=== PATIENT | female | born 1950 | race Caucasian/White ===

== ENCOUNTER 2019-05-20 08:00 | Observation (INO) | payer OTHER ==
[~2019-05-20] VITALS: Ht 157.5 cm; Wt 76.8 kg
[2019-05-20] MEDS ORDERED: ASPIRIN ADULT L81 M5 PO (08:55)
[2019-05-20] MEDS ORDERED: GLUCOTROL10 MG PO (09:02)
[2019-05-20] MEDS ORDERED: METFORMIN500 M1 PO (09:03)
[2019-05-20] MEDS ORDERED: LOSARTAN POTASS50 M1 PO (09:03)
[2019-05-20] MEDS ORDERED: METOPROLOL TART50 MG PO (09:03)
[2019-05-20] MEDS ORDERED: VITAMIN D22000 I1 PO (09:04)
[2019-05-20] MEDS ORDERED: ATORVASTATIN CA40 M1 PO (09:06)
[2019-05-20 09:26] VITALS: BP 154/73
--- NOTE | 2019-05-20 16:11 | NUR ---
RECEIVED PT FROM PACU, S/P RIGHT TOTAL KNEE REPLACEMENT. AAOX4. DENIES HEADACHE/DIZZINESS. SPEECH IS CLEAR. NO SOB NOTED, LUNG SOUNDS CTA. O2 SAT=98%, RA. DENIES CHEST PAIN/PRESSURE, GI=564. DENIES NUMBNESS/TINGLING SENSATION. DENIES ABDOMINAL PAIN, C/O NAUSEA. ABDOMEN IS SOFT AND ROUND. C/O 6/10 RIGHT KNEE PLACEMENT, ABLE TO MOVE TOES. IV SITE ON THE LEFT HAND GAUGE 20 IS PATENT AND INTACT. SIDE RAILS UPX2. CALL LIGHT ON REACH. DAUGHTER AND AT BEDSIDE. ENDORSED TO PRIMARY NURSE MALI FOR CONTINUITY OF CARE
--- NOTE | 2019-05-20 16:20 | NUR ---
RESUMED CARE OF THIS PT FROM ROSENDO. PT IN NO ACUTE DISTRESS. AWAKE AND ALERT. C/O NAUSEA, ICE CHIPS GIVEN WITH FAIR RELIEF. NO NAUSEA AT THIS TIME. FAMILY AT BEDSIDE. IVF STARTED AND INFUSING WELL, SITE CLEAR. NO C/O PAIN AT THIS TIME. DRESSING TO RT KNE WITH JAME WRAP INPLACE AND INTACT. POLAR ICE IN USE.WILL CONTINUE WITH PLAN OF CARE.
[2019-05-20 16:31] VITALS: BP 147/59
[2019-05-20 16:35] VITALS: Ht 157.5 cm; Wt 76.8 kg
--- NOTE | 2019-05-20 16:54 | NUR ---
PHYSICAL THERAPY NOTE PATIENT AND FAMILY REFUSED EVAL AND TREATMENT TODAY SECONDARY INCREASE MS WEAKNESS, NAUSEA, VOMITTING. PATIENT AND FAMILY EDUCATED WITH BENEFITS OF TREATMENT AND EVAL BUT UNABLE TO ENCOURAGE. FAMILY REPORTS THAT THEY SPOKE TO MD AND REHAB ALREADY AND AGREED TO POSTPONE EVAL TILL TOMORROW. FAMILY AND PATIENT HAVE INCREASE ANXIETY OVER NAUSEA. CONTINUED TO REFUSE AFTER MEDICATION. WILL SEE IN AM TOMORROW. NURSING CONFIRMED AND AWARE.
--- NOTE | 2019-05-20 18:13 | NUR ---
PT C/O NAUSEA, NO VOMITING NOTED. MEDICATED WITH ZOFRAN IVP
--- NOTE | 2019-05-20 18:53 | NUR ---
REMAINS IN NO DISTRESS, AWAKE, ALERT AND ORIENTED. NO CHANGES IN VS. NO C/O PAIN AT THIS TIME, NO NAUSEA. FAMILY AT BEDSIDE. CALL LIGHT WITHIN REACH. WILL CONTINUE WITH PLAN OF CARE.
--- NOTE | 2019-05-20 19:38 | NUR ---
RECEIVED PT FROM PREVIOUS SHIFT. POLAR ICE TO R KNEE. PT DENIES PAIN. DENIES SOB ON RA. IV PATENT AND INFUSING NS AT 80ML/HR WITH NO S/S OF INFILTRATION. DRESSING TO R KNEE, CDI. CALL LIGHT WITHIN REACH, BED IN LOW POSITION. WILL CONTINUE TO MONITOR.
[2019-05-20 20:14] VITALS: BP 128/61
--- NOTE | 2019-05-20 23:55 | NUR ---
PT C/O 5/10 PAIN TO R KNEE. NORCO PROVIDED PRN PER EMAR
--- NOTE | 2019-05-21 01:01 | NUR ---
PT RESTING IN NO ACUTE DISTRESS. RR EVEN/UNLABORED. CALL LIGHT WITHIN REACH, BED IN LOW POSITION. WILL CONTINUE TO MONITOR.
[2019-05-21 04:31] VITALS: BP 125/47
[2019-05-21 07:01] LABS: PLATELET COUNT 306 x10^3mcL (130-400); RED CELL DISTRIBUTION WIDTH 13.7 % (11.5-14.5)
--- NOTE | 2019-05-21 07:03 | NUR ---
RECEIVED PT FROM TALENT DEVELOPMENT MANAGER NURSE. PT RESTING IN BED, AOX4, RESP E/U ON RA. REPORTED MILD R KNEE PAIN AND NAUSEA BUT TOLERABLE. IV TO L HAND W/ NO SIGNS OF INFILTRATIO, IVF INFUSING WELL. DRESSING TO R KNEE CDI W/ POLAR ICE IN PLACE. PT ASSISTED TO RESTROOM AT THIS TIME, AMBULATORY W/ WALKER AND ASSIST. CALL LIGHT WITHIN REACH, PT AT BEDSIDE. WILL CONTINUE TO MONITOR.
[2019-05-21 07:31] LABS: BASOPHIL % 0 % (0-2)
[2019-05-21 07:45] LABS: CALCIUM 8.4 mg/dL (8.5-10.1); CARBON DIOXIDE 28.3 mmol/L (21-32); CHLORIDE SERUM 103 mmol/L (98-107); CREATININE SERUM 0.8 mg/dL (0.6-1.0); GFR1 > 60 mL/min; GLUCOSE SERUM 160 mg/dL (74-106); SODIUM SERUM 139 mmol/L (136-145)
[2019-05-21 08:37] VITALS: BP 144/66
[2019-05-21 12:18] VITALS: BP 128/102
[2019-05-21 16:35] VITALS: BP 128/102
--- NOTE | 2019-05-21 17:14 | NUR ---
PT DISCHARGED. DISCHARGE PACKET AND FOLLOW UP INSTRUCTIONS REVIEWED W/ PT. PT AOX4, RESP E/U ON RA, VS STABLE, DENIES PAIN AT THIS TIME. IV TO L HAND REMOVED, CATH INTACT, GAUZE DRESSING APPLIED. DRESSING TO RLE CDI. PT ESCORTED TO LOBBY VIA WHEELCHAIR BY BENNY MEIER W/ NO ACUTE INCIDENCE.
== END 2019-05-21 17:13 | disposition home or self-care (01) ==
LOC: DS 08:00 → OR 10:30 → DS 10:30 → MU 16:04 → DS 16:05 → MU 17:22
PROVIDERS: ADMIT Orthopaedic Surgery
DX: M17.11 Unilateral primary osteoarthritis, right knee (principal)
CPT/HCPCS: 82962; 97116-GP; 97530-GP; C1713; C1776; G0378; J0690; J1815; J1885; J2175; J2250; J2270; J2405; J2704; J3010; J3490; J7030; J7120; Q0092